=== PATIENT | female | born 1990 | race Caucasian/White ===

== ENCOUNTER 2016-06-15 19:04 | Emergency (ER) | payer OTHER, SELFPAY ==
[~2016-06-15 19:04] MED LIST: Iopamidol 370 76% 100 ML VIAL ONE; Sodium Chloride 0.9% 1,000 ML BAG ONE; Sodium Chloride 0.9% 100 ML BAG ONE
[2016-06-15 19:42] LABS: Bilirubin Negative (Negative); Blood, Urine Moderate (Negative); Glucose, Urine (Dipstick) Negative (Negative); Leukocyte Negative (Negative); Nitrite Positive (Negative); Protein, Urine (Dipstick) 30 mg/dL (Neg-Trace); Urobilinogen 0.2 mg/dL (0.2-1.0); pH, Urine 5.5 (5.0-9.0)
[2016-06-15 19:44] LABS: Clarity Hazy (Clear)
[2016-06-15 19:48] LABS: Bacteria/HPF 2+ HPF (None Seen); RBC/HPF 0-3 HPF (0-3)
[2016-06-15 19:51] LABS: Pregnancy Test - Urine (BHCG) NEGATIVE (NEGATIVE); Pregu Control Background? CLEAR/WHITE (CLR/WHITE); Pregu Control Bar Appear? YES (CONTROL BAR)
[2016-06-15 21:21] LABS: ALT (SGPT) 20 U/L (0-55); AST (SGOT) 29 U/L (5-34); Albumin 4.9 g/dL (3.5-5.0); Alkaline Phosphatase 68 U/L (40-150); Anion Gap 21 mmol/L (10-20); BUN (Urea Nitrogen) 16 mg/dL (7.0-18.7); Bilirubin, Total 0.9 mg/dL (0.2-1.2); Calc. Creatinine Clearance 0 mL/min (70-130); Calcium 9.9 mg/dL (7.8-10.44); Carbon Dioxide 20 mmol/L (22-29); Chloride 99 mmol/L (98-107); Estimated GFR-MDRD 87; Globulin 3.4 g/dL (2.4-3.5); Glucose 86 mg/dL (70-105); Lipase 5 U/L (8-78); Potassium 4.1 mmol/L (3.5-5.1); Protein, Total 8.3 g/dL (6.0-8.3); Sodium 136 mmol/L (136-145)
[2016-06-15 21:36] LABS: Hemoglobin 13.5 g/dL (12.0-16.0); Mean Corpuscular HGB CONC 35.1 g/dL (32.0-36.0); Mean Corpuscular Hemoglobin 31.6 pg (27.0-31.0); Mean Corpuscular Volume 90.1 fl (81.0-99.0); Mean Platelet Volume 10.5 fL (7.4-10.4); Platelet Count 237 thou/uL (130-400); RBC Distribution Width 11.2 % (11.5-14.5); Red Blood Cell (RBC) Count 4.26 mill/uL (4.20-5.40); White Blood Cell (WBC) Count 22.1 thou/uL (4.8-10.8)
[2016-06-15] MEDS ORDERED: Ondansetron HCl/PF 4 MG/2 ML Vial ONE (21:39)
[2016-06-15] MEDS ORDERED: Fentanyl 100 MCG/2 ML VIAL ONE (21:39)
[2016-06-15 21:44] LABS: Lymphocytes 7 % (21-51); Monocytes 1 % (0-10)
[2016-06-15 21:45] LABS: Band 16 % (5-11); Neutrophil 76 % (42-75)
[2016-06-15] MEDS ORDERED: ceFOXitin 1 GM VIAL ONE (21:51)
--- NOTE | 2016-06-15 22:29 | CT ---
CT OF THE ABDOMEN AND PELVIS WITH IV CONTRAST 06/15/16 INDICATION: 25-year-old female with lower abdominal pain. The patient has been vomiting all day with some blood noted in the vomit in the last two hours. TECHNIQUE: Multiple CT images were obtained of the abdomen following intravenous contrast administration. 90 mL of Isovue was administered for the exam. Axial and coronal reformatted images were constructed from the raw data. FINDINGS: ABDOMEN: Lung bases are clear. The liver, spleen, pancreas, adrenal glands and kidneys are normal appearing. No free fluid or enlarged lymph nodes are evident. PELVIS: There is a normal appendix in the right lower quadrant. No free fluid or enlarged lymph nodes are evident. The unopacified large and small bowel appear within normal limits. There is a 1.9 cm follicular cyst within the left ovary. The bladder, rectum, and perirectal soft tissues are within normal limits. Osseous structures: No acute abnormality. IMPRESSION: No acute abnormality demonstrated within the abdomen or pelvis. POS: YAMILE
[2016-06-15] MEDS ORDERED: Doxycycline 100 MG CAP ONE (22:54)
--- NOTE | 2016-06-16 00:03 | PICIS ---
[facility] EMERGENCY RECORD COMMUNICATIONS COMMUNICATIONS: Other notification, Name Miracle, contacted at [facility], Reason for notification Transfer request, Patient preference is to go to [facility] in [place]. 2308: Raul Venessa Yasmani declined r/t insurance issues. MD and patient notified/patient wanting to go to [facility] at this time. Transfer request will proceed for [facility] per patient's preference. (22:39 AGAN) Notes: MD to MD mercado/Dr. Matthews accepted/Delroy Rodríguez giving AD approval for ED to ED transfer. Report complete (nurse to nurse). (23:37 AGAN) Ambulance service, contacted at [facility] Dispatch, Name of provider Dr. Patel, Person contacted Maki, requested for transfer to another facility, by advanced life support transport, Estimated time of arrival on site, 2355: Ambulance arrival time 0001: Departure time. (23:44 AGAN) TRIAGE (19:15 EROG) TRIAGE NOTES: LOWER ABD PAIN. VOMITING ALL DAY. BLOOD SOMETIMES IN VOMIT OVER LAST 2 HOURS. (19:15 EROG) PATIENT: NAME: Gayle Carter, AGE: 25, GENDER: female, : Sat1990, TIME OF GREET: SatJun 15, 2016 19:04, PREFERRED LANGUAGE: Peruvian, ETHNICITY: Not or , FALL RISK: NO, ECODE BILLING MAP: [facility], SSN: [id number], Zip Code: [address], KG WEIGHT: 45.36 (est.), HEIGHT/LENGTH: 154.94cm, BMI: 18.89, , , PERSON ID: [id number], PCP: NONE. (19:15 EROG) PHONE: . (22:50) COMPLAINT: SIDE PAIN. (19:15 EROG) ADMISSION: URGENCY: 3 Urgent, ADMISSION SOURCE: Home, TRANSPORT: CAR, BED: TRIAGE. (19:15 EROG) ASSESSMENT: Assessment: ABD PAIN TO BILATERAL LOWER ABD. DESCRIBES TWISTING. VOMITING, SOMETIMES WITH BLOOD., Symptoms began 12 hours ago, Additional Triage notes: VOMITING SINCE THIS MORNING. VOMITING BEGAN ABOUT 2 HOURS AGO. (19:19 EROG) PAIN: Patient complains of pain described as, on a scale 0-10 patient rates pain as 9, Pain is constant, Aggravating factors:, Aggravating factors include STANDING UP STRAIGHT, Relieving factors present, Relieving factors include CURLED UP. (19:19 EROG) SIRS SCORING: Heart Rate 55-109 (0), Temp range 96.8-101.1 (0), respiratory rate 12-24 (0), Mental Status altered: no (0), Infection or Suspected Infection: No. (19:19 EROG) PROVIDERS: TRIAGE NURSE: Leonel Ball RN. (19:15 EROG) VITAL SIGNS: BP 125/69, Pulse 102, Resp 18, Temp 99.0, (Tympanic), Pain 9, (Constant), O2 Sat 99, on Room Air, Time 06/15/2016 19:13. (19:13 EROG) KNOWN ALLERGIES &a-1R&a+25V*p+0X*d4029F*c202B*c15G*c2P*p-0X&a-25V&a+1R Name: Gayle Carter : 1990 F25 MedRec: [id number] AcctNum: [id number] Prepared: Sat Jun 16, 2016 03:17 by Interface Page 1 of 15 pMD [facility] EMERGENCY RECORD NKDA CURRENT MEDICATIONS (19:15 EROG) None VITAL SIGNS VITAL SIGNS: BP: 125/69, Pulse: 102, Resp: 18, Temp: 99.0 (Tympanic), Pain: 9 (Constant), O2 sat: 99 on Room Air, Time: 06/15/2016 19:13. (19:13 EROG) BP: 105/69, Pulse: 80, Resp: 20, Pain: 6, O2 sat: 100 on Room Air, Time: 06/15/2016 22:39. (22:39 JDEA) BP: 108/72, Pulse: 88, Resp: 18, Pain: 8, O2 sat: 99 on Room Air, Time: 06/15/2016 21:59. (21:59 JDEA) BP: 105/88, Pulse: 70, Resp: 18, Temp: 99 (Oral), Pain: 4, O2 sat: 99 on Room Air, Time: 06/15/2016 23:46. (23:46 JDEA) NURSING ASSESSMENT: ABDOMEN (19:23 EROG) CONSTITUTIONAL: Patient arrives ambulatory, Gait steady, History obtained from patient, Patient appears, in distress due to pain, Patient cooperative, Oriented to person, place and time, Skin warm, Skin dry, Skin normal in color, Mucous membranes pink, Mucous membranes moist, Patient complains of LOWER ABD PAIN AND VOMITING. PAIN: cramping pain, to the left lower quadrant, to the right lower quadrant, constant, STATES PAIN DECREASES TO 4/10 WITH LEGS CURLED UP. DESCRIBES PAIN TWISTING SENSATION., Pain exacerbated by, sitting upright, Pain relieved by, LEGS CURLEED UP. ABDOMEN: Abdomen assessment findings include abdomen symmetrical, Abdomen soft, tender, diffusely, Bowel sounds, hyperactive, to all four quadrants, Associated with vomiting, history of vomiting, STATES VOMITING ALL DAY, BUT HAS BLOOD IN IT FOR LAST 2 HOURS. LMP: : 1, Para: 1, Abortions: 0. NURSING ASSESSMENT: FALL RISK (23:54 JDEA) FALL RISK: Fall risk assessment findings include: no history of falls (0), No bed rest greater than 2 days (0), No use of level of consciousness altering agents with mentation or cognitive changes (0), No change in blood pressure (0), No sensory deficits (0), No impaired mobility (0), No neurologic diagnosis (0), No elimination problems (0), No confusion (0), Total score 0, No risk for fall. NURSING ASSESSMENT: SKIN (23:54 JDEA) SKIN: Skin assessment findings include skin warm, Skin dry, Skin normal in color. JOYCELYN SCALE: (4) Sensory perception has no impairment, (4) Skin &a-1R&a+25V*p+0X*s2354D*c202B*c15G*c2P*p-0X&a-25V&a+1R Name: Gayle Carter : 1990 F25 MedRec: [id number] AcctNum: [id number] Prepared: Sat Jun 16, 2016 03:17 by Interface Page 2 of 15 pMD [facility] EMERGENCY RECORD is rarely moist, (4) Patient walks frequently, (3) Slightly limited mobility, (3) Adequate nutrition, (2) Patient has potential problem moving, Joycelyn Risk Total: 20. NURSING PROCEDURE: IV PATIENT IDENITIFIER: Patient actively involved in identification process, Patient's identity verified by patient stating name, Patient's identity verified by hospital ID bracelet, Patient's identity verified by family member. (20:46 EROG) Patient actively involved in identification process, Patient's identity verified by patient stating name, Patient's identity verified by patient stating date, Patient's identity verified by hospital ID bracelet. (21:42 JDEA) IV SITE 1: IV established, to the left antecubital, using an 18 gauge catheter, in one attempt, Unable to obtain IV access, IV site prepped with CHLOROPREP, Labs drawn at time of placement, labeled in the presence of the patient and sent to lab, Notes: VEIN RUPTURED WHEN TRYING TO ADVANCE CATHETER. INFORMED DR. PATEL AND HE SAID TO HOLD IV UNTIL LABS RESULTED. (20:46 EROG) IV therapy indicated for hydration, IV therapy indicated for medication administration, IV established, to the right antecubital, using an 18 gauge catheter, in one attempt, Saline lock established, Flushed with normal saline (mls): 10 mls. (21:42 JDEA) FOLLOW-UP SITE 1: After procedure, 2x3 ensure dressing applied, After procedure, no drainage at IV site, After procedure, no swelling at IV site, After procedure, no redness at IV site. (21:42 JDEA) NOTES: Patient tolerated procedure well. (21:42 JDEA) SAFETY: Side rails up, Cart/Stretcher in lowest position, Family at bedside, Call light within reach, Hospital ID band on. (21:42 JDEA) NURSING PROCEDURE: PELVIC EXAM (21:50 JDEA) PATIENT IDENTIFIER: Patient actively involved in identification process, Patient's identity verified by patient stating name, Patient's identity verified by patient stating date, Patient's identity verified by hospital ID bracelet. PELVIC EXAM: Pelvic exam indicated for pelvic pain, Pelvic exam performed by Dr. MD Patel, using a medium disposable speculum, Pelvic exam assisted by Rubi, Exam findings include, moderate amount, of white vaginal discharge, without odor, Exam findings include cervix closed. FOLLOW-UP: After procedure, no bleeding. NOTES: Patient tolerated procedure well. SAFETY: Side rails up, Cart/Stretcher in lowest position, Family at bedside, Call light within reach, Hospital ID band on. NURSING PROCEDURE: TRANSFER (23:46 JDEA) TRANSFER: Reason for transfer need for specialized care, Diagnosis: PID, Accepting institution: [facility], Accepting physician: &a-1R&a+25V*p+0X*r6721U*c202B*c15G*c2P*p-0X&a-25V&a+1R Name: Gayle Carter : 1990 F25 MedRec: [id number] AcctNum: [id number] Prepared: Sat Jun 16, 2016 03:17 by Interface Page 3 of 15 pMD [facility] EMERGENCY RECORD Matthews, Referring physician: JORGE, Transported by non-urgent ambulance, accompanied by emergency medical services personnel, Report called to receiving facility, Summary of Care printed. BELONGINGS: Belongings and valuables with patient at time of admission include:, Belongings remain with patient. NURSING PROCEDURE: TRANSPORT TO TESTS PATIENT IDENTIFIER: Patient actively involved in identification process, Patient's identity verified by patient stating name, Patient's identity verified by patient stating date, Patient's identity verified by hospital ID bracelet. (22:10 JDEA) TRANSPORT TO TESTS: Transport indicated to facilitate diagnosis, Patient transported to CT scan, via wheelchair, Accompanied by x-ray community development technician. (22:10 JDEA) FOLLOW-UP: After procedure, patient returned to emergency department. (22:19 JDEA) NOTES: Patient tolerated procedure well. (22:10 JDEA) SAFETY: Side rails up, Cart/Stretcher in lowest position, Family at bedside, Call light within reach, Hospital ID band on. (22:10 JDEA) NURSING PROCEDURE: URINE COLLECTION (19:32 EROG) PATIENT IDENTIFIER: Patient actively involved in identification process, Patient's identity verified by patient stating name, Patient's identity verified by patient stating date, Patient's identity verified by hospital ID bracelet. URINE COLLECTION FEMALE: Urine collected by mid-stream clean catch, Output amount (mL) 70, urine yellow in color, and cloudy, Specimen labeled in the presence of the patient and sent to lab. ORDER DETAILS Order Name: BUSINESS COMMUNICATIONS INSTRUCTOR ED, Status: Done, Time: 20:45 06/15/2016, User: EROG, - Ordered for: MD Patel Darren, - Entered by: MD Patel Darren - SatJun 15, 2016 20:23, - Quantity: 1, Order Name: CBC with Differential, Status: Active, Time: 20:23 06/15/2016, User: LYNN, - Ordered for: MD Patel Darren, - Entered by: MD Patel Darren - Jamari Jun 15, 2016 20:23, - Quantity: 1, Order Name: Comprehensive Metabolic Panel, Status: Active, Time: 20:23 06/15/2016, User: LYNN, - Ordered for: MD Patel Darren, - Entered by: MD Patel Darren - SatJun 15, 2016 20:23, - Quantity: 1, Order Name: CT Abdomen Pelvis W Con, Status: Active, Time: 21:23 06/15/2016, User: LYNN, &a-1R&a+25V*p+0X*p7131Z*c202B*c15G*c2P*p-0X&a-25V&a+1R Name: Gayle Carter : 1990 F25 MedRec: [id number] AcctNum: [id number] Prepared: Ezra Jun 16, 2016 03:17 by Interface Page 4 of 15 D [facility] EMERGENCY RECORD - Ordered for: MD Patel Darren, - Entered by: MD Patel Darren - Jamari Jun 15, 2016 21:23, - Quantity: 1, Order Name: Culture, Blood, Status: Active, Time: 20:23 06/15/2016, User: LYNN, - Ordered for: MD Patel Darren, - Entered by: MD Patel Darren - Jamari Jun 15, 2016 20:23, - Quantity: 1, Order Name: Culture, Urine, Status: Active, Time: 21:53 06/15/2016, User: LYNN, - Ordered for: MD Patel Darren, - Entered by: MD Patel Darren - Jamari Jun 15, 2016 21:53, - Quantity: 1, Order Name: ERRT Pulse Oximeter ER, Status: Active, Time: 20:23 06/15/2016, User: LYNN, - Ordered for: MD Patel Darren, - Entered by: MD Patel Darren [facility] Jun 15, 2016 20:23, - Quantity: 1, Order Name: GC/Chlamydia Profile by PCR, Status: Active, Time: 21:53 06/15/2016, User: LYNN, - Ordered for: MD Patel Darren, - Entered by: MD Patel Darren [facility] Jun 15, 2016 21:53, - Quantity: 1, Order Name: Lactic Acid with repeat, Status: Active, Time: 20:23 06/15/2016, User: LYNN, - Ordered for: MD Patel Darren, - Entered by: MD Patel Darren [facility] Jun 15, 2016 20:23, - Quantity: 1, Order Name: Lipase, Status: Active, Time: 20:23 06/15/2016, User: LYNN, - Ordered for: MD Patel Darren, - Entered by: MD Patel Darren [facility] Jun 15, 2016 20:23, - Quantity: 1, Order Name: Test, Urine (BHCG), Status: Active, Time: 19:30 06/15/2016, User: EROG, - Ordered for: MD Patel Darren, - Entered by: SAMREEN Ball, [facility] Jun 15, 2016 19:30, - Quantity: 1, Order Name: SALINE LOCK, Status: Canceled, Time: 20:59 06/15/2016, User: SOREN, - Ordered for: MD Patel Darren, - Entered by: MD Patel Darren [facility] Jun 15, 2016 20:23, - Quantity: 1, Order Name: Urinalysis w/ Rflx Microscopic, Status: Active, Time: 19:20 06/15/2016, User: EROG, - Ordered for: MD Patel Darren, - Entered by: SAMREEN Ball, [facility] Jun 15, 2016 19:20, - Quantity: 1, Order Name: VP3, Status: Active, Time: 21:53 06/15/2016, User: LYNN, - Ordered for: MD Patel Darren, &a-1R&a+25V*p+0X*r9263U*c202B*c15G*c2P*p-0X&a-25V&a+1R Name: Gayle Carter : 1990 F25 MedRec: [id number] AcctNum: [id number] Prepared: [facility] Jun 16, 2016 03:17 by Interface Page 5 of 15 pMD [facility] EMERGENCY RECORD - Entered by: MD Patel Darren - SatJun 15, 2016 21:53, - Quantity: 1. MEDICATION ADMINISTRATION SUMMARY Drug Name: Doxy, Dose Ordered: 100 mg, Route: Oral, Status: Given, Time: 22:57 06/15/2016, Drug Name: cefOXitin intravenous, Dose Ordered: 2 g, Route: IV Fluid Infusion, Status: Given, Time: 22:17 06/15/2016, Drug Name: fentaNYL (PF) injection, Dose Ordered: 50 mcg, Route: IV Push, Status: Given, Time: 21:52 06/15/2016, Drug Name: ondansetron HCl intravenous, Dose Ordered: 4 mg, Route: IV Push, Status: Given, Time: 21:50 06/15/2016, Drug Name: *sodium chloride 0.9 % intravenous, Dose Ordered: 1 L, Route: IV Fluid Infusion, Status: Given, Time: 21:42 06/15/2016, *Additional information available in notes, Detailed record available in Medication Service section. MEDICATION SERVICE cefOXitin intravenous: Order: cefOXitin intravenous (cefoxitin sodium) - Dose: 2 g : IV Fluid Infusion Schedule: Now Ordered by: Efrem Patel MD Entered by: Efrem Patel MD SatJun 15, 2016 21:51 Documented as given by: Carmel Resendez RN SatJun 15, 2016 22:17 Patient, Medication, Dose, Route and Time verified prior to administration. Amount given: 2g, IV SITE #1 IVPB or drip, initial infusion, IVPB mixed in: 100ml, Fluid: 0.9NS, Connections checked prior to administration, Line traced prior to administration, Catheter placement confirmed via flush prior to administration, IV site without signs or symptoms of infiltration during medication administration, No swelling during administration, No drainage during administration, IV flushed after administration, Correct patient, time, route, dose and medication confirmed prior to administration, Patient advised of actions and side-effects prior to administration, Allergies confirmed and medications reviewed prior to administration, Patient in position of comfort, Side rails up, Cart in lowest position, Family at bedside, Call light in reach. : Follow Up : Response assessment performed, No signs or symptoms of allergic reaction noted, _IV SITE #1:_, Medication infusion discontinued, on SatJun 15, 2016 23:50, Total infusion time IV site 1 1 hour, 35 minutes, ., Total amount infused: 2g, Advised not to ambulate without assistance, Patient in position of comfort, Side rails up, Cart in lowest position, Family at bedside. (23:50 JDEA) Doxy: Order: Doxy (doxycycline hyclate) - Dose: 100 mg : Oral Schedule: Now Ordered by: Efrem Patel MD &a-1R&a+25V*p+0X*a6509Z*c202B*c15G*c2P*p-0X&a-25V&a+1R Name: Gayle Carter : 1990 F25 MedRec: [id number] AcctNum: [id number] Prepared: Sat Jun 16, 2016 03:17 by Interface Page 6 of 15 pMD [facility] EMERGENCY RECORD Entered by: Efrem Patel MD SatJun 15, 2016 22:53 , Acknowledged by: Carmel Resendez RN SatJun 15, 2016 22:53 Documented as given by: Carmel Resendez RN SatJun 15, 2016 22:57 Patient, Medication, Dose, Route and Time verified prior to administration. Amount given: 100mg, Site: Medication administered P.O., Correct patient, time, route, dose and medication confirmed prior to administration, Patient advised of actions and side-effects prior to administration, Allergies confirmed and medications reviewed prior to administration, Patient in position of comfort, Side rails up, Cart in lowest position, Family at bedside, Call light in reach. fentaNYL (PF) injection: Order: fentaNYL (PF) injection (fentanyl citrate/preservative free) - Dose: 50 mcg : IV Push Schedule: Now Ordered by: Efrem Patel MD Entered by: Efrem Patel MD SatJun 15, 2016 21:27 , Acknowledged by: Carmel Resendez RN SatJun 15, 2016 21:42 Documented as given by: Carmel Resendez RN SatJun 15, 2016 21:52 Patient, Medication, Dose, Route and Time verified prior to administration. Amount given: 50mcg, IV SITE #1 IVP, subsequent different medication, Slowly, Awake and alert- acceptable, Ordering Physician approved to Give, Connections checked prior to administration, Line traced prior to administration, Catheter placement confirmed via flush prior to administration, IV site without signs or symptoms of infiltration during medication administration, No swelling during administration, No drainage during administration, IV flushed after administration, Correct patient, time, route, dose and medication confirmed prior to administration, Patient advised of actions and side-effects prior to administration, Allergies confirmed and medications reviewed prior to administration, Patient in position of comfort, Side rails up, Cart in lowest position, Family at bedside, Call light in reach. ondansetron HCl intravenous: Order: ondansetron HCl intravenous (ondansetron HCl) - Dose: 4 mg : IV Push Schedule: Now Ordered by: Efrem Patel MD Entered by: Efrem Patel MD SatJun 15, 2016 21:27 , Acknowledged by: Carmel Resendez RN SatJun 15, 2016 21:42 Documented as given by: Carmel Resendez RN SatJun 15, 2016 21:50 Patient, Medication, Dose, Route and Time verified prior to administration. Amount given: 4mg, IV SITE #1 IVP, initial medication, Slowly, Connections checked prior to administration, Line traced prior to administration, Catheter placement confirmed via flush prior to administration, IV site without signs or symptoms of infiltration during medication administration, No swelling during administration, No drainage during administration, IV flushed after administration, Correct patient, time, route, dose and medication confirmed prior to &a-1R&a+25V*p+0X*f8673M*c202B*c15G*c2P*p-0X&a-25V&a+1R Name: Gayle Carter : 1990 F25 MedRec: [id number] AcctNum: [id number] Prepared: Ezra Jun 16, 2016 03:17 by Interface Page 7 of 15 pMD [facility] EMERGENCY RECORD administration, Patient advised of actions and side-effects prior to administration, Allergies confirmed and medications reviewed prior to administration, Patient in position of comfort, Side rails up, Cart in lowest position, Family at bedside, Call light in reach. sodium chloride 0.9 % intravenous: Order: sodium chloride 0.9 % intravenous (0.9 % sodium chloride) - Dose: 1 L : IV Fluid Infusion Schedule: Now Notes: (Bolus) Ordered by: Efrem Patel MD Entered by: Efrem Patel MD SatJun 15, 2016 21:25 , Acknowledged by: Carmel Resendez RN SatJun 15, 2016 21:42 Documented as given by: Carmel Resendez RN SatJun 15, 2016 21:42 Patient, Medication, Dose, Route and Time verified prior to administration. Amount given: 1L, IV SITE #1 IV fluids established for hydration, Connections checked prior to administration, Line traced prior to administration, Catheter placement confirmed via flush prior to administration, IV site without signs or symptoms of infiltration during medication administration, No swelling during administration, No drainage during administration, IV flushed after administration, Correct patient, time, route, dose and medication confirmed prior to administration, Patient advised of actions and side-effects prior to administration, Allergies confirmed and medications reviewed prior to administration, Patient in position of comfort, Side rails up, Cart in lowest position, Family at bedside, Call light in reach. : Follow Up : Response assessment performed, No signs or symptoms of allergic reaction noted, _IV SITE #1:_, IV fluid infusion discontinued, on SatJun 15, 2016 23:51, Total fluid hydration time IV site 1 2 hours, 10 minutes, ., Total amount infused: 1L, Advised not to ambulate without assistance, Patient in position of comfort, Side rails up, Cart in lowest position, Family at bedside. (23:51 JDEA) HPI ABDOMINAL PAIN (21:40 DHAM) CHIEF COMPLAINTS: Patient presents for evaluation of abdominal pain. HISTORIAN: History provided by patient. LOCATION FEMALE: Symptoms are generalized, no radiation, No migration of pain, right upper, right lower and left lower abd pain. QUALITY: Pain is dull in nature, described as aching. SEVERITY: Current severity of pain rated as 9/10. TIME COURSE: Gradual onset of symptoms, Date and time of onset was 06/15/2016 08:00. ASSOCIATED WITH FEMALE: No associated recent antibiotic use, No associated bright red blood per rectum, No associated chills, No associated constipation, No associated diarrhea, No associated fever, Associated with groin pain, for 12 hours, Associated with loss of appetite, No associated melena, Associated with nausea, No associated night sweats, No &a-1R&a+25V*p+0X*n6675F*c202B*c15G*c2P*p-0X&a-25V&a+1R Name: Gayle Carter : 1990 F25 MedRec: [id number] AcctNum: [id number] Prepared: Sat Jun 16, 2016 03:17 by Interface Page 8 of 15 pMD [facility] EMERGENCY RECORD associated urinary tract infection signs or symptoms, Associated with vomiting, Number of times: 15, No associated vaginal discharge, No associated vaginal bleeding, vomited several small pea sized clots of blood after dry heaving just prior to coming in. Did not turn the toilet water red. MODIFYING FACTORS FEMALE: Patient confirmed not via urine, Patient does not have sexually transmitted disease, new sexual partner 3.5 weeks ago. RELIEVED BY: Patient's condition relieved by nothing, Patient's condition relieved by remaining still, Patient's condition relieved by supine position, Patient's condition relieved by curling knees to abdomen. EXACERBATED BY: Patient's condition exacerbated by movement, Patient's condition exacerbated by upright position, Patient's condition exacerbated by walking. RISK FACTORS FEMALE: Ectopic risk factors:, not applicable for this patient, Abdominal aortic aneurysm risk factors, not applicable for this patient, Coronary artery disease risk factors, not applicable for this patient. ROS (21:46 DHAM) CONSTITUTIONAL: Historian denies chills, denies fever, denies lethargy, denies night sweats. EYES: Historian denies eye pain, denies eye redness, denies eye discharge. ENT: Negative ears, nose, throat review of systems. CARDIOVASCULAR: Historian denies chest pain, no radiation, Historian denies diaphoresis, denies syncope, denies palpitations. RESPIRATORY: Historian denies cough, denies shortness of breath, denies sputum, denies wheezing. GI: Historian reports abdominal pain, reports anorexia, reports appetite changes, denies constipation, denies diarrhea, reports hematemesis, denies melena, reports nausea, denies stool changes, reports vomiting. GENITOURINARY FEMALE: Historian denies amenorrhea, denies dysuria, denies frequency, denies hot flashes, denies , denies urgency, denies vaginal bleeding, denies vaginal discharge, denies vaginal itching. MUSCULOSKELETAL: Historian denies arthralgias, denies back pain, denies fall, denies joint redness, denies joint stiffness, denies joint swelling, denies neck pain. SKIN: Historian denies pruritis, denies rash. NEUROLOGIC: Historian denies headache, denies mental status changes. ENDOCRINE: Historian denies polydipsia, denies polyuria. HEMO/LYMPHATIC: Historian denies abnormal blood clotting, denies easy bruising, denies gum bleeding. ALLERGIC/IMMUNOLOGIC: Historian denies eczema, denies hives. h/o frequent UTI's. &a-1R&a+25V*p+0X*q9442X*c202B*c15G*c2P*p-0X&a-25V&a+1R Name: Gayle Carter : 1990 F25 MedRec: [id number] AcctNum: [id number] Prepared: Ezra Jun 16, 2016 03:17 by Interface Page 9 of 15 pMD [facility] EMERGENCY RECORD PAST MEDICAL HISTORY (19:19 EROG) MEDICAL HISTORY: No past medical history. FEMALE SURGICAL HISTORY: Patient's surgical history is not relevant to the management of the case. PSYCHIATRIC HISTORY: Notes: DENIES. SOCIAL HISTORY: Patient drinks socially, Patient denies drug use, Patient currently uses tobacco, smokes cigarettes, Occasional or some day smoker. PHYSICAL EXAM (21:59 DHAM) CONSTITUTIONAL: Vital Signs Reviewed, Patient afebrile, Pulse, tachycardic, Blood pressure normal, Respiratory rate normal, Patient appears, toxic, uncomfortable, Patient appears, in moderate pain distress, Patient alert and oriented to person, place and time, Nursing notes reviewed, prefers to lay on her side with her knees pulled up to her abdomen. painful to lay flat. HEAD: Head exam included findings of head atraumatic, normocephalic. EYES: Eye exam included findings of eyelids normal to inspection, Pupils equally round and reactive to light, Extraocular muscles intact, Conjunctiva normal, Sclera normal, Eye exam included findings of anterior chamber clear. ENT: Ear exam normal, Nose exam normal, Pharynx exam normal, Uvula exam normal, Tonsil exam normal, Mouth exam normal. NECK: Neck exam included findings of normal range of motion, Trachea midline, no meningeal signs, no cervical adenopathy, no tenderness. RESPIRATORY CHEST: Respiratory exam included findings of no respiratory distress, Breath sounds clear, No wheezing, No rales, No rhonchi. CARDIOVASCULAR: Cardiovascular exam included findings of, rate tachycardic, rhythm regular, Heart sounds normal. ABDOMEN FEMALE: Abdominal exam included findings of abdomen tender, diffusely, to the left lower quadrant, to the right lower quadrant, moderate intensity, Bowel sounds, hypoactive, Liver normal, Spleen normal, no distension, no mass, no pulsatile masses, Peritoneal signs present, no rigidity, guarding present, rebound present, no ventral hernia. GENITOURINARY FEMALE: External genitalia normal, Genitourinary exam included findings of external genitalia normal, vaginal mucosa normal, Discharge present, white in color, moderate amount. PELVIC: Speculum exam abnormal, white discharge present, Bimanual exam abnormal, Cervix not dilated, Cervical motion tenderness present, No adnexal mass, Uterus tender, anteverted, Urethral exam normal, no blood at meatus, no lesions, no edema, no prolapse, Bladder exam &a-1R&a+25V*p+0X*l5134U*c202B*c15G*c2P*p-0X&a-25V&a+1R Name: Gayle Carter : 1990 F25 MedRec: [id number] AcctNum: [id number] Prepared: Sat Jun 16, 2016 03:17 by Interface Page 10 of 15 pMD [facility] EMERGENCY RECORD normal, no distension, no tenderness, no masses, Exam findings include complaint of lower abdominal pain, no vaginal bleeding present, Escorted by SAMREEN black. BACK: Back exam included findings of normal inspection, range of motion normal, Costovertebral angle tenderness, on the left. UPPER EXTREMITY: Upper extremity exam normal. LOWER EXTREMITY: Lower extremity exam normal. NEURO: Neuro exam normal, [place] coma scale 15, Neuro exam findings include patient oriented to person, place and time, Speech normal, Gait abnormal, walks flexed forward, Memory normal, Cranial nerves intact, no focal motor deficits, no focal sensory deficits. SKIN: Skin exam included findings of skin warm, dry, and normal in color, no rash. LYMPHATIC: Lymphatic exam normal, Lymphatic exam included findings of cervical nodes normal, Femoral nodes normal, Inguinal nodes normal. PSYCHIATRIC: Psychiatric exam included findings of patient oriented to person place and time, Normal affect, Judgment normal, Insight normal, Remote memory normal, Recent memory normal, Concentration normal. EVENTS TRANSFER: Triage to Emergency Triage. (SatJun 15, 2016 19:15 EROG) Emergency Triage to Waiting. (19:19 EROG) Emergency Waiting to Main ED -04. (20:20 JDEA) Removed from Emergency Main ED -04. (23:59 JDEA) RADIOLOGYINTERPRETATION (22:30 DHAM) ABDOMEN: Abdomen/pelvis CT scan, with contrast negative, no abdominal aortic aneurysm, no appendicitis, no diverticulitis, no kidney stones, no injuries, no mass, no obstruction, no free air, no hydronephrosis. O2SAT INTERPRETATION (21:38 DHAM) O2SAT: Single pulse oximetry, Oxygen saturation 99%, on room air, Oxygen saturation interpretation: Normal, No intervention required. DOCTOR NOTES TEXT: Pt appears to have PID with markedly elevated WBC. With the few white cells in the urine and positive nitrites, it is possible but her exam is more consistent with PID. Given her guarding and rebound and difficulty with intractable vomiting, this patient needs inpatient treatment with surgical/type proof reproducer consults available as well. we have started tx with IV cefoxitin 2gm IV and have started IVF and pain control. Family requests [facility] as her Medicaid is specific for there. Called [facility] at [phone]. (22:31 DHAM) &a-1R&a+25V*p+0X*u7718S*c202B*c15G*c2P*p-0X&a-25V&a+1R Name: Gayle Carter : 1990 F25 MedRec: [id number] AcctNum: [id number] Prepared: Sat Jun 16, 2016 03:17 by Interface Page 11 of 15 pMD [facility] EM[facility] RECORD [facility] has declined due to insurance reasons. We will call [facility]. Pt's pain is 4-5 and she declines further pain meds at this time. (23:11 DHAM) Pt discussed with Dr. Matthews at [facility] at [phone] who accepts the pt in transfer via EMS. Pt appears stable for transfer. (23:38 DHAM) PROBLEM LIST No recorded problems DIAGNOSIS (23:39 DHAM) FINAL: PRIMARY: FE PELVIC INFLAMMATORY DISEASE UNS. DISPOSITION PATIENT: Disposition Type: Transfer, Disposition: [facility]. (23:39 DHAM) Patient left the department. (23:59 JDEA) PRESCRIPTION No recorded prescriptions IMAGING EMS TRANSPORT ORDERS: Image captured from scanner. (23:51 AGAN) *SUPPLY CHARGE SHEET: Image captured from scanner. ([facility] Jun 16, 2016 00:06 JDEA) *MEMORANDUM OF TRANSFER: Image captured from scanner. ([facility] Jun 16, 2016 00:10 AGAN) CONSENTS: Image captured from scanner. ([facility] Jun 16, 2016 00:10 AGAN) TRANSFER WORKSHEET: Image captured from scanner. ([facility] Jun 16, 2016 00:10 AGAN) *MEMORANDUM OF TRANSFER: Page 2 added. Image captured from scanner. ([facility] Jun 16, 2016 00:10 AGAN) ADMIN DIGITAL SIGNATURE: SAMREEN Ball, [place]. (21:08 EROG) MD Jorge, Efrem. ([facility] Jun 16, 2016 03:02 DHAM) RESULTS RADIOLOGY: CT Abdomen Pelvis W Con Observe DT: SatJun 15, 2016 21:24, ABDPELV CT OF THE ABDOMEN AND PELVIS WITH IV CONTRAST 06/15/16 INDICATION: 25-year-old female with lower abdominal pain. The patient has been vomiting all day with some blood noted in the vomit in the last two hours. &a-1R&a+25V*p+0X*q0958Q*c202B*c15G*c2P*p-0X&a-25V&a+1R Name: Gayle Carter : 1990 F25 MedRec: [id number] AcctNum: [id number] Prepared: [facility] Jun 16, 2016 03:17 by Interface Page 12 of 15 pMD [facility] EM[facility] RECORD TECHNIQUE: Multiple CT images were obtained of the abdomen following intravenous contrast administration. 90 mL of Isovue was administered for the exam. Axial and coronal reformatted images were constructed from the raw data. FINDINGS: ABDOMEN: Lung bases are clear. The liver, spleen, pancreas, adrenal glands and kidneys are normal appearing. No free fluid or enlarged lymph nodes are evident. PELVIS: There is a normal appendix in the right lower quadrant. No free fluid or enlarged lymph nodes are evident. The unopacified large and small bowel appear within normal limits. There is a 1.9 cm follicular cyst within the left ovary. The bladder, rectum, and perirectal soft tissues are within normal limits. Osseous structures: No acute abnormality. IMPRESSION: No acute abnormality demonstrated within the abdomen or pelvis. POS: [facility] . (23:38 DHAM) LABORATORY: Urine Microscopic Collection DT: SatJun 15, 2016 19:37, RBC/HPF 0-3 HPF, Range (0-3), *WBC/HPF 7-10 - H HPF, Range (0-3), *Squamous Epithelial 4-6 - H HPF, Range (0-3), *Bacteria/HPF 2+ - H HPF, Range (None Seen). (20:22 DHAM) Urinalysis w/ Rflx Microscopic Collection DT: SatJun 15, 2016 19:37, Color Yellow , Range (Yellow), Clarity Hazy , Range (Clear), Specific [place], Urine 1.030 , Range (1.005-1.030), pH, Urine 5.5 , Range (5.0-9.0), Leukocyte Negative , Range (Negative), *Nitrite Positive - H , Range (Negative), *Protein, Urine (Dipstick) 30 - H mg/dL, Range (Neg-Trace), &a-1R&a+25V*p+0X*o4295V*c202B*c15G*c2P*p-0X&a-25V&a+1R Name: Gayle Carter : 1990 F25 MedRec: [id number] AcctNum: [id number] Prepared: Sat Jun 16, 2016 03:17 by Interface Page 13 of 15 pMD [facility] EM[facility]Y RECORD Glucose, Urine (Dipstick) Negative mg/dL, Range (Negative), *Ketone, Urine 80 - H mg/dL, Range (Negative), Urobilinogen 0.2 mg/dL, Range (0.2-1.0), Bilirubin Negative , Range (Negative), *Blood, Urine Moderate - H , Range (Negative). (20:22 DHAM) Test, Urine (BHCG) Collection DT: SatJun 15, 2016 19:37, Test - Urine (BHCG) NEGATIVE , Range (NEGATIVE), Method of sensitivity- Indeterminant: results should be repeated, after 48 hours. Positive: results may be detected as early as 4-5 days before a first missed menses. Elimination of BHCG-, Elimination following first trimester D&C: 29-44 Days , Elimination following term : 8-24 Days , Specific [place] 1.030 , Range (1.002-1.036), A dilute urine specimen may, not contain insurance claim representative levels of hCG. If is still, suspected, a first morning urine specimen OR a random blood specimen should, be obtained from the patient 48-72 hours later and re-tested. , . (: [facility]) CBC with Differential Collection DT: SatJun 15, 2016 20:47, *White Blood Cell (WBC) Count 22.1 - H thou/uL, Range (4.8-10.8), Red Blood Cell (RBC) Count 4.26 mill/uL, Range (4.20-5.40), Hemoglobin 13.5 g/dL, Range (12.0-16.0), Hematocrit 38.4 %, Range (36.0-47.0), Mean Corpuscular Volume 90.1 fl, Range (81.0-99.0), *Mean Corpuscular Hemoglobin 31.6 - H pg, Range (27.0-31.0), Mean Corpuscular HGB CONC 35.1 g/dL, Range (32.0-36.0), *RBC Distribution Width 11.2 - L %, Range (11.5-14.5), Platelet Count 237 thou/uL, Range (130-400), *Mean Platelet Volume 10.5 - H fL, Range (7.4-10.4), *Neutrophil 76 - H %, Range (42-75), *Band 16 - H %, Range (5-11), *Lymphocytes 7 - L %, Range (21-51), Monocytes 1 %, Range (0-10). (21:52 DHAM) Lipase Collection DT: SatJun 15, 2016 20:47, *Lipase 5 - L U/L, Range (8-78). (21:52 DHAM) Comprehensive Metabolic Panel Collection DT: SatJun 15, 2016 20:47, Sodium 136 mmol/L, Range (136-145), Potassium 4.1 mmol/L, Range (3.5-5.1), Chloride 99 mmol/L, Range (98-107), *Carbon Dioxide 20 - L mmol/L, Range (22-29), *Anion Gap 21 - H mmol/L, Range (10-20), &a-1R&a+25V*p+0X*v7337G*c202B*c15G*c2P*p-0X&a-25V&a+1R Name: Gayle Carter : 1990 F25 MedRec: [id number] AcctNum: [id number] Prepared: Sat Jun 16, 2016 03:17 by Interface Page 14 of 15 pMD [facility] EM[facility] RECORD BUN (Urea Nitrogen) 16 mg/dL, Range (7.0-18.7), Creatinine 0.81 mg/dL, Range (0.6-1.1), Estimated GFR-MDRD 87 , Reference Range for Estimated GFR: Greater than 90, mL/min/1.73 m2 NOTE: The MDRD equation has not been validated for use, with the elderly (over 70 years of age), women, patients with, serious comorbid condition or persons with extremes of body size, muscle, mass, or nutritional status. , Glucose 86 mg/dL, Range (70-105), Calcium 9.9 mg/dL, Range (7.8-10.44), Bilirubin, Total 0.9 mg/dL, Range (0.2-1.2), Protein, Total 8.3 g/dL, Range (6.0-8.3), NOTE: Plasma values are generally 0.3 to 0.5 g/dL higher than serum values, due to the presence of fibrinogen. , Albumin 4.9 g/dL, Range (3.5-5.0), Globulin 3.4 g/dL, Range (2.4-3.5), Alb/Glob Ratio 1.4 g/dL, Range (1.2-2.2), Alkaline Phosphatase 68 U/L, Range (40-150), AST (SGOT) 29 U/L, Range (5-34), ALT (SGPT) 20 U/L, Range (0-55). (21:52 DHAM) Lactic Acid for Sepsis Collection DT: SatJun 15, 2016 20:47, Lactic Acid - Sepsis 1.6 mmol/L, Range (0.5-2.2). (23:38 DHAM) Quispe: OLIVIER=SAMREEN Dorsey, González BAILEY=MD Jorge, Efrem THOMAS=SAMREEN Ball, Leonel DOTY=SAMREEN Resendez, [place] &a-1R&a+25V*p+0X*c7202I*c202B*c15G*c2P*p-0X&a-25V&a+1R Name: Gayle Carter : 1990 F25 MedRec: [id number] AcctNum: [id number] Prepared: Ezra Jun 16, 2016 03:17 by Interface Page 15 of 15 pMD MTDD
[2016-06-17 16:20] LABS: Chlamydia by PCR Not Detected (NotDetected); GC by PCR Not Detected (NotDetected)
== END 2016-06-16 00:01 | disposition short-term general hospital (02) ==
LOC: MADERS 19:04
DX: N73.9 Female pelvic inflammatory disease, unspecified (principal); F17.210 Nicotine dependence, cigarettes, uncomplicated
CPT/HCPCS: 36415; 74177; 80053; 81003; 81015; 81025; 83605; 83690; 85025; 87040; 87077; 87086; 87186; 87480; 87491; 87510; 87591; 87660; 94760; 96361; 96365; 96366; 96375; J0694; J2405; J3010; J7050